=== PATIENT | male | born 1955 | race Caucasian/White ===

== ENCOUNTER 2020-02-13 18:52 | Emergency (ER) | payer MEDICARE, MEDICAID ==
[2020-02-13 19:01] VITALS: BP 140/73; PULSE 68
[2020-02-13] MEDS ORDERED: Glucagon,Human Recombinant 1 MG Vial IVPUSH ONE (19:14)
[2020-02-13] MEDS ORDERED: LORazepam 2 MG/ML SDV IVPUSH ONE (19:14)
[2020-02-13] MEDS ORDERED: Sodium Chloride 0.9% 1,000 ML IV SCH (19:15)
--- NOTE | 2020-02-13 20:37 | CT ---
CT chest Technique: Multiple axial sections through the chest were obtained. Intravenous contrast not utilized. Findings: Fluid is seen within the esophagus compatible with reflux. No other intraluminal finding is appreciated within the esophagus. Food material is noted within the stomach. Other visualized abdominal structures show no discrete abnormality. Aorta shows no aneurysm. Mediastinum and hilar regions show no adenopathy or mass. No axillary adenopathy is seen. Small calcified nodule is noted within the right lung base measuring about 2 mm compatible with granuloma. Lungs otherwise are clear. No acute parenchymal change is appreciated. No pleural effusions are seen. Mild scattered degenerative change within the spine is seen. No acute osseous abnormality is appreciated. Impression: 1. Fluid within the esophagus most likely representing gastroesophageal reflux. No additional abnormality is appreciated within the esophagus. 2. 2 mm calcified granuloma within the right lung base. 3. Other findings as noted above which are nonacute. Diagnostic code #2 This report was dictated in MDT
--- NOTE | 2020-02-13 21:16 | EDM.PDOC ---
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 He is an [facility] patient, special needs, eating a hamburger and hot dog at a park when he started coughing and choking. He do cough or vomit out some food before EMS arrived. He than had some dry heaves for them en route to ED. Sats were OK upon their arrival. He was not blue or dusky. He is not know to have had this happen before. - Related Data Allergies Allergy/AdvReac Type Severity Reaction Status Date / Time colistin [From Coly-Mycin S] Allergy Severe Rash Verified 02/13/20 20:09 gentamicin Allergy Severe Rash Verified 02/13/20 20:09 hydrocortisone Allergy Severe Rash Verified 02/13/20 20:09 [From Coly-Mycin S] neomycin [From Coly-Mycin S] Allergy Severe Rash Verified 02/13/20 20:09 thonzonium bromide Allergy Severe Rash Verified 02/13/20 20:09 [From Coly-Mycin S] Home Meds: Home Meds Albuterol Sulfate 0 mg IH Q4HR PRN 02/13/20 [History] Albuterol [Proventil HFA] 2 puff INH Q4H PRN 02/13/20 [History] Allopurinol [Zyloprim] 100 mg PO DAILY 02/13/20 [History] Calcium Carbonate [Tums] 2 tab PO BEDTIME 02/13/20 [History] Carboxymethylcellulose Sodium [Refresh Liquigel 1% Ophth Soln] 1 drop OP BID 02/13/20 [History] Famotidine 40 mg PO BID 02/13/20 [History] Fexofenadine [Santa] 0 mg PO DAILY 02/13/20 [History] Fluticasone Propionate [Flonase Allergy Relief] 2 spray NS DAILY 02/13/20 [History] Multivitamin 1 each PO DAILY 02/13/20 [History] Non-Formulary Medication [NF Drug] 2 drop EARBOTH ASDIRECTED 02/13/20 [History] Omeprazole Magnesium [Prilosec Otc] 20 mg PO DAILY 02/13/20 [History] Pimecrolimus [Elidel] 1 applic TP DAILY PRN 02/13/20 [History] Rosuvastatin [Crestor] 5 mg PO DAILY 02/13/20 [History] buPROPion HCL [Wellbutrin Xl] 150 mg PO DAILY 02/13/20 [History] Past Medical History HEENT History: Reports: Allergic Rhinitis Cardiovascular History: Reports: High Cholesterol Respiratory History: Reports: Asthma Gastrointestinal History: Reports: Other (See Below) Other Gastrointestinal History: Choking episode on a hot dog 02/13/20. Genitourinary History: Reports: None Musculoskeletal History: Reports: None Neurological History: Reports: None Psychiatric History: Reports: Other (See Below) Other Psychiatric History: Downs Syndrome Endocrine/Metabolic History: Reports: Obesity/BMI 30+ Hematologic History: Reports: None Immunologic History: Reports: None Oncologic (Cancer) History: Reports: None Dermatologic History: Reports: Eczema - Infectious Disease History Infectious Disease History: Reports: None Social & Family History - Tobacco Use Smoking Status *Q: Never Smoker - Caffeine Use Caffeine Use: Reports: Soda - Recreational Drug Use Recreational Drug Use: No ED ROS GENERAL - Review of Systems Review Of Systems: See Below Constitutional: Denies: Fever, Chills, Diaphoresis HEENT: Reports: No Symptoms Respiratory: Reports: Shortness of Breath (now better), Cough (now better) Cardiovascular: Reports: Chest Pain (wtill has discomfort upper mid chest) GI/Abdominal: Reports: Nausea, Vomiting. Denies: Abdominal Pain Skin: Reports: No Symptoms Neurological: Reports: No Symptoms ED EXAM, GENERAL - Physical Exam Exam: See Below General Appearance: Alert, Anxious, Mild Distress Eye Exam: Bilateral Eye: PERRL Throat/Mouth: Normal Inspection Head: Atraumatic Neck: Supple Respiratory/Chest: No Respiratory Distress, Lungs Clear, Normal Breath Sounds. No: Rhonchi, Wheezing Cardiovascular: Regular Rate, Rhythm GI/Abdominal: Soft, Non-Tender Extremities: Normal Inspection Neurological: Alert, Other (Not very talkative but kind of answers simple questions, cooperative with exam, follows commands) Skin Exam: Warm, Dry, Normal Color Course - Vital Signs Last Recorded V/S: Last Vital Signs Temp 98.5 F 02/13/20 18:56 Pulse 68 02/13/20 18:56 Resp 16 08/06/20 18:56 BP 140/73 02/13/20 18:56 Pulse Ox 92 L 02/13/20 18:56 - Orders/Labs/Meds Orders: Active Orders 24 hr Category Date Time Status EKG 12 Lead [EKG Documentation Completion] [RC] STAT Care 02/13/20 19:13 Active Labs: Laboratory Tests 02/13/20 02/13/20 Range/Units 19:53 19:53 WBC 6.17 (4.23-9.07) K/mm3 RBC 4.40 L (4.63-6.08) M/mm3 Hgb 14.4 (13.7-17.5) gm/dl Hct 42.6 (40.1-51.0) % MCV 96.8 H (79.0-92.2) fl MCH 32.7 H (25.7-32.2) pg MCHC 33.8 (32.2-35.5) g/dl RDW Std Deviation 47.7 H (35.1-43.9) fL Plt Count 250 (163-337) K/mm3 MPV 9.3 L (9.4-12.3) fl Neut % (Auto) 48.4 (34.0-67.9) % Lymph % (Auto) 34.2 (21.8-53.1) % Norman % (Auto) 13.5 H (5.3-12.2) % Eos % (Auto) 1.5 (0.8-7.0) Baso % (Auto) 2.1 H (0.1-1.2) % Neut # (Auto) 2.99 (1.78-5.38) K/mm3 Lymph # (Auto) 2.11 (1.32-3.57) K/mm3 Norman # (Auto) 0.83 H (0.30-0.82) K/mm3 Eos # (Auto) 0.09 (0.04-0.54) K/mm3 Baso # (Auto) 0.13 H (0.01-0.08) K/mm3 Sodium 137 (136-145) mEq/L Potassium 4.1 (3.5-5.1) mEq/L Chloride 102 (98-107) mEq/L Carbon Dioxide 27 (21-32) mEq/L Anion Gap 12.1 (5-15) BUN 20 H (7-18) mg/dL Creatinine 1.2 (0.7-1.3) mg/dL Est Cr Clr Drug Dosing 44.56 mL/min Estimated GFR (MDRD) > 60 (>60) mL/min BUN/Creatinine Ratio 16.7 (14-18) Glucose 128 H (80-115) mg/dL Calcium 8.7 (8.5-10.1) mg/dL Total Bilirubin 0.3 (0.2-1.0) mg/dL AST 31 (15-37) U/L ALT 60 (16-63) U/L Alkaline Phosphatase 82 (46-116) U/L Total Protein 7.1 (6.4-8.2) g/dl Albumin 3.1 L (3.4-5.0) g/dl Globulin 4.0 gm/dL Albumin/Globulin Ratio 0.8 L (1-2) Meds: Medications Discontinued Medications Generic Name Dose Route Start Last Admin Trade Name Celestino PRN Reason Stop Dose Admin Glucagon 1 mg 02/13/20 19:14 02/13/20 19:55 Glucagen IVPUSH 02/13/20 19:15 1 mg ONETIME ONE Administration Sodium Chloride 1,000 mls @ 150 mls/hr 02/13/20 19:15 02/13/20 19:54 Normal Saline IV 150 mls/hr ASDIRECTED MOY Administration Lorazepam 0.5 mg 02/13/20 19:14 02/13/20 19:55 Ativan IVPUSH 02/13/20 19:15 0.5 mg ONETIME ONE Administration - Re-Assessments/Exams Free Text/Narrative Re-Assessment/Exam: 02/13/20 21:17 Pt points to upper chest when asked about how he feels. I did have him drink a few sips of water, he did sip water OK but than did have discomfort with that and some dry heaves but did not vomit anything up. Apparently swallowing saliva, not spitting anything up during time of my initial or follow up exams. Chest CT has been done which shows some fluid in the lower esophagus, food in the stomach but not seen in the esphagus. He had earlier been given glucagon 1mg IV, ativan 0.5 mg IV. Resting comfortably at time of reexam a few minutes ago. Discomfort is gone. He did drink about half a glass of water for me without difficulty. He is a little drowsy from the ativan. Will watch him for a bit longer, make sure he doesn't start vomiting again. He does live alone in an appartment but the caregiver that is here with him states they can arrange to have someone be with him for the night so that will be our plan. 02/13/20 22:24. no further vomiting, has been swallowing saliva, and able to drink water, discharge instr. as documented. Departure - Departure Time of Disposition: 21:45 Disposition: Home, Self-Care 01 Condition: Fair Clinical Impression: Choking episode Food impaction of esophagus Qualifiers: Encounter type: initial encounter Qualified Code(s): T18.128A - Food in esophagus causing other injury, initial encounter - Discharge Information Referrals: Osbaldo Maynard MD [Primary Care Provider] - Forms: ED Department Discharge Additional Instructions: clear liquids only until tomorrow morning. Than careful soft diet tomorrow as tolerated. Be sure to cut and chew food carefully. If a staff member is available to check on him every 30 to 60 minutes remainder of night until tomorrow morning that will really be helpful for his safety. Return to ED as needed. Sepsis Event Note (ED) - Evaluation Sepsis Screening Result: No Definite Risk - Focused Exam Vital Signs: Vital Signs Temp Pulse Resp BP Pulse Ox 02/13/20 18:56 98.5 F 68 16 140/73 92 L - My Orders Last 24 Hours: My Active Orders 02/13/20 19:13 EKG 12 Lead [EKG Documentation Completion] [RC] STAT - Assessment/Plan Last 24 Hours: My Active Orders 02/13/20 19:13 EKG 12 Lead [EKG Documentation Completion] [RC] STAT
== END 2020-02-13 22:00 | disposition home or self-care (01) ==
LOC: JD.ED 18:52
DX: T18.128A Food in esophagus causing other injury, initial encounter (principal); E78.00 Pure hypercholesterolemia, unspecified; J45.909 Unspecified asthma, uncomplicated; Q90.9 Down syndrome, unspecified; E66.9 Obesity, unspecified; Z68.32 Body mass index [BMI] 32.0-32.9, adult; Z88.1 Allergy status to other antibiotic agents; Z88.8 Allergy status to other drugs, medicaments and biological substances; Z79.899 Other long term (current) drug therapy
CPT/HCPCS: 36415; 71250; 80053; 85025; 93005; 96361; 96374; 96375; 99284; J1610; J2060; J7030; 93010; 99283

== ENCOUNTER 2021-01-21 15:15 | Emergency (ER) | payer MEDICARE, MEDICAID ==
[2021-01-21 15:42] VITALS: BP 100/49; PULSE 73
[2021-01-21] MEDS ORDERED: Acetaminophen 325 MG Tab PO ONE (17:15)
--- NOTE | 2021-01-21 17:17 | EDM.PDOC ---
ED HPI GENERAL MEDICAL PROBLEM - General Chief Complaint: General Stated Complaint: R SHOULDER PAIN/DIZZY/TIRED Time Seen by Provider: 01/21/21 15:59 Source of Information: Reports: Other (Able staff member) History Limitations: Reports: No Limitations - History of Present Illness INITIAL COMMENTS - FREE TEXT/NARRATIVE: 66-year-old male presents the emergency department with a staff member from his group living facility. Per the staff member, the patient complains of right arm pain and left knee pain. They believe that he fell yesterday while he was in a closet however he denies falling. They state that he has been limping with his ambulation and he was and able to carry his supper tray last night due to complaints of pain. They also are stating that he has been more groggy than normal due to the fact that he was just started on trazodone by Dr. Huitron. They state that his dose has been decreased however he still has a lot of daytime drowsiness. They state they do have a call into her and she is managing the trazodone titration. Staffing suspects that patient fell due to the sedation and drowsiness from the trazodone. He has not had any recent fever, chills, nausea, vomiting or diarrhea. He has not had any cough or shortness of breath or sore throat. - Related Data Allergies Allergy/AdvReac Type Severity Reaction Status Date / Time colistin [From Coly-Mycin S] Allergy Severe Rash Verified 01/21/21 15:43 gentamicin Allergy Severe Rash Verified 01/21/21 15:43 hydrocortisone Allergy Severe Rash Verified 01/21/21 15:43 [From Coly-Mycin S] neomycin [From Coly-Mycin S] Allergy Severe Rash Verified 01/21/21 15:43 thonzonium bromide Allergy Severe Rash Verified 01/21/21 15:43 [From Coly-Mycin S] Home Meds: Home Meds Albuterol Sulfate 0 mg IH Q4HR PRN 02/13/20 [History] Albuterol [Proventil HFA] 2 puff INH Q4H PRN 02/13/20 [History] Calcium Carbonate [Tums] 2 tab PO BEDTIME 02/13/20 [History] Carboxymethylcellulose Sodium [Refresh Liquigel 1% Ophth Soln] 1 drop OP BID 02/13/20 [History] Famotidine 40 mg PO BID 02/13/20 [History] Fexofenadine [Santa] 0 mg PO DAILY 02/13/20 [History] Fluticasone Propionate [Flonase Allergy Relief] 2 spray NS DAILY 02/13/20 [History] Multivitamin 1 each PO DAILY 02/13/20 [History] Non-Formulary Medication [NF Drug] 2 drop EARBOTH ASDIRECTED 02/13/20 [History] Omeprazole Magnesium [Prilosec Otc] 20 mg PO DAILY 02/13/20 [History] Pimecrolimus [Elidel] 1 applic TP DAILY PRN 02/13/20 [History] Rosuvastatin [Crestor] 5 mg PO DAILY 02/13/20 [History] allopurinoL [Zyloprim] 100 mg PO DAILY 02/13/20 [History] buPROPion HCL [Wellbutrin Xl] 150 mg PO DAILY 02/13/20 [History] Past Medical History HEENT History: Reports: Allergic Rhinitis Cardiovascular History: Reports: High Cholesterol Respiratory History: Reports: Asthma Gastrointestinal History: Reports: Other (See Below) Other Gastrointestinal History: Choking episode on a hot dog 02/13/20. Genitourinary History: Reports: None Musculoskeletal History: Reports: None Neurological History: Reports: None Psychiatric History: Reports: Other (See Below) Other Psychiatric History: Downs Syndrome Endocrine/Metabolic History: Reports: Obesity/BMI 30+ Hematologic History: Reports: None Immunologic History: Reports: None Oncologic (Cancer) History: Reports: None Dermatologic History: Reports: Eczema - Infectious Disease History Infectious Disease History: Reports: None Social & Family History - Tobacco Use Tobacco Use Status *Q: Never Tobacco User - Caffeine Use Caffeine Use: Reports: Coffee, Soda - Recreational Drug Use Recreational Drug Use: No ED ROS GENERAL - Review of Systems Review Of Systems: Comprehensive ROS is negative, except as noted in HPI. ED EXAM, GENERAL - Physical Exam Exam: See Below Exam Limited By: No Limitations General Appearance: Alert, WD/WN, No Apparent Distress Ears: Normal External Exam, Hearing Grossly Normal Nose: Normal Inspection Throat/Mouth: Normal Inspection, Normal Lips, Normal Voice, No Airway Compromise Head: Atraumatic, Normocephalic Neck: Normal Inspection, Supple, Non-Tender, Full Range of Motion Respiratory/Chest: No Respiratory Distress, No Accessory Muscle Use Cardiovascular: Normal Peripheral Pulses, Regular Rate, Rhythm Peripheral Pulses: 2+: Radial (L), Radial (R) GI/Abdominal: No Distention (Male) Exam: Deferred Rectal (Males) Exam: Deferred Back Exam: Normal Inspection, Full Range of Motion Extremities: Normal Inspection, Normal Range of Motion, No Pedal Edema, Normal Capillary Refill. No: Non-Tender (Tenderness noted to right proximal posterior humerus; tenderness noted to patella) Neurological: Alert, Oriented Psychiatric: Normal Affect, Normal Mood Skin Exam: Warm, Dry, Intact, Normal Color, No Rash Lymphatic: No Adenopathy Course - Vital Signs Text/Narrative:: As stated above the patient is complaining of right arm pain and left knee pain. Upon assessment the patient does have full range of motion to his upper extremities. Full range of motion noted to his right shoulder. I can only elicit pain to his proximal posterior humerus with palpation. He has full range of motion to his left leg as well. And does not complain of any discomfort to the left lower extremity except for when I am palpating the patella. There is no bruising noted to his arm or knee. Staff is requesting an x-ray of the extremities. I have ordered this and I have also ordered for him receive Tylenol 650 mg p.o. x1 dose. They state they have not given him anything for discomfort. Last Recorded V/S: Last Vital Signs Temp 97.1 F 01/21/21 15:37 Pulse 73 01/21/21 15:37 Resp 18 01/21/21 15:37 BP 100/49 L 01/21/21 15:37 Pulse Ox 94 L 01/21/21 15:37 - Orders/Labs/Meds Meds: Medications Discontinued Medications Generic Name Dose Route Start Last Admin Trade Name Freq PRN Reason Stop Dose Admin Acetaminophen 650 mg 01/21/21 17:15 01/21/21 18:17 Acetaminophen 325 Mg Tab PO 01/21/21 17:16 650 mg NOW ONE Administration - Re-Assessments/Exams Free Text/Narrative Re-Assessment/Exam: 01/21/21 18:42 Radiologist impression 4 view of the left knee: 1. Moderate medial joint space narrowing. 2. Nothing acute is otherwise seen on left knee exam Radiologist impression 2 view of the right humerus: 1. Prior calcified tendinitis within the right shoulder. 2. Nothing acute is seen on 2 view right humerus study. Patient will be discharged home with recommendations that he take Tylenol 650 mg p.o. every 4 hours as needed for discomfort. Departure - Departure Time of Disposition: 18:59 Disposition: Home, Self-Care 01 Condition: Good Clinical Impression: Knee pain, left anterior Arm pain, posterior Qualifiers: Laterality: right Qualified Code(s): M79.601 - Pain in right arm - Discharge Information Referrals: Osbaldo Maynard MD [Primary Care Provider] - Forms: ED Department Discharge Additional Instructions: Mario was seen in the emergency department today with complaints of right arm pain and left knee pain. Suspected that the patient had fallen and injured himself. Was recently started on trazodone which caused him to have daytime drowsiness and dosage was subsequently decreased. Trazodone can cause significant daytime drowsiness. Dr. Huitron will continue to manage his trazodone dosages. X-rays were completed on the right arm and shoulder area as well as the left knee. There were no acute fractures noted. He likely does have discomfort due to being sore from falling. Recommended that he take Tylenol 650 mg every 4 hours as needed for the discomfort. If he is not better in about a week, recommend that he follows up with his primary care provider for further evaluation. Sepsis Event Note (ED) - Evaluation Sepsis Screening Result: No Definite Risk - Focused Exam Vital Signs: Vital Signs Temp Pulse Resp BP Pulse Ox 01/21/21 15:37 97.1 F 73 18 100/49 L 94 L
--- NOTE | 2021-01-21 18:18 | CR ---
Right humerus: 2 views of the right humerus were obtained. Comparison: No prior humerus studies available. Calcifications are seen within the shoulder compatible with previous calcific tendinitis. Humerus shows no fracture or other bony abnormality. Impression: 1. Prior calcific tendinitis within the shoulder. 2. Nothing acute is seen on 2 view right humerus study. Diagnostic code #2
--- NOTE | 2021-01-21 18:32 | CR ---
Left knee: 4 views of the left knee were obtained. Comparison: No previous study. Moderate narrowing of the medial joint space. Lateral joint space is preserved. Lateral and crosstable lateral views are less than optimal. No discrete fracture or other bony abnormality is appreciated. Impression: 1. Moderate medial joint space narrowing. 2. Nothing acute is otherwise seen on left knee exam. Diagnostic code #2
== END 2021-01-21 19:10 | disposition home or self-care (01) ==
LOC: JD.ED 15:15
DX: M79.601 Pain in right arm (principal); M25.561 Pain in right knee; E78.00 Pure hypercholesterolemia, unspecified; E66.9 Obesity, unspecified; Z88.8 Allergy status to other drugs, medicaments and biological substances; Z88.1 Allergy status to other antibiotic agents; Z88.5 Allergy status to narcotic agent; Z79.899 Other long term (current) drug therapy; Z68.36 Body mass index [BMI] 36.0-36.9, adult
CPT/HCPCS: 73060; 73564; 99283; A9270